=== PATIENT | male | born 1955 | race Caucasian/White ===

== ENCOUNTER 2024-11-11 11:27 | Inpatient (IN) | payer MEDICARE, SELFPAY ==
[2024-11-11] VITALS (26 sets, daily range): BP systolic 152–195; BP diastolic 66–87; PULSE 31–71; RESP 17–32; TEMP 36.6–36.9; O2SAT 86–100; BMI 35.0; BMI 33.3
--- NOTE | 2024-11-11 11:40 | EKG12_ITS ---
Test Reason : Blood Pressure : */* mmHG Vent. Rate : 65 BPM Atrial Rate : 65 BPM P-R Int : 214 ms QRS Dur : 122 ms QT Int : 416 ms P-R-T Axes : 53 -57 1 degrees QTcB Int : 432 ms Sinus rhythm with 1st degree A-V block with Premature atrial complexes Left axis deviation Right bundle branch block Cannot rule out Anteroseptal infarct , age undetermined Abnormal ECG Confirmed by Andrew Sims ([id number]), editor continuity and script PETER FUENTES ([id number]) on 11/12/2024 1:17:36 PM Referred By: UG/TL Confirmed By: Andrew Sims
[2024-11-11 11:49] LABS: Hematocrit 51.8 % (40-54); Hemoglobin 16.4 g/dL (13.0-16.5); Immature Granulocytes Count 0.040 X10^3/uL (0.0-0.0); Mean Corp Hgb Conc 31.7 g/dL (32-36); Mean Corpuscular Volume 86.0 fL (80-94); Mean Platelet Vol. 8.9 fl (6.2-12.0); NRBC Flagged by Analyzer 0 % (0-5); Platelet Count 197 K/mm3 (150-450); RBC Distribution Width CV 16.7 % (11.6-14.6); RBC Distribution Width SD 50.8 fl (35.1-43.9); Red Blood Count 6.02 M/mm3 (4.6-6.2); White Blood Count 10.8 K/mm3 (4.4-11.0)
[2024-11-11] MEDS: Albuterol 2.5 MG/3 ML VIAL.NEB. INHALATION ×3 (11:59→12:29)
[2024-11-11 12:13] LABS: AST(SGOT) 17 U/L (<=37); Alanine Aminotransfer ALT/SGPT 12 U/L (<=46); Albumin, Serum 3.9 g/dL (3.4-4.8); Alkaline Phosphatase 110 U/L (40-129); Anion Gap 10 (5-15); BUN 15 mg/dL (4-19); BUN/Creat Ratio 10.7 RATIO (10-20); Calcium,Total 9.5 mg/dL (7.6-11.0); Carbon Dioxide 33.3 mmol/L (21.0-32.0); Chloride 90 mmol/L (98-108); Estimated Creatinine Clearance 57.55 ml/min (50-250); Globulin 2.7 g/dL (2.2-4.2); Glucose 96 mg/dL (70-99); Potassium 4.5 mmol/L (3.3-5.1); Pro- Brain NATRIURETIC PEPTIDE 3061 pg/mL (<=900)
[2024-11-11 12:14] LABS: Troponin T High Sensitivity 81 ng/L (<=22)
--- NOTE | 2024-11-11 12:20 | RAD_ITS ---
EXAM: XR Chest, 2 Views CLINICAL INDICATION: DYSPNEA, DYSPNEA ON EXERTION, BILATERAL WHEEZING TECHNIQUE: Frontal and lateral views of the chest. COMPARISON: No relevant prior studies available. FINDINGS: LUNGS AND PLEURAL SPACES: See below. HEART: Cardiomegaly with mild congestion. MEDIASTINUM: Unremarkable. Normal mediastinal contour. BONES/JOINTS: Unremarkable. No acute fracture. RAD/Chest PA and Lateral IMPRESSION: Cardiomegaly with mild congestion. Reading Location[facility]
--- NOTE | 2024-11-11 12:26 | EX.ED.DYSGE1 ---
HPI History of Present Illness Chief Complaint: Shortness of Breath Detail of Chief Complaint: Sent from 's office for shortness of breath. States he was breathing 50 Informant: patient Onset/Context/Timing Onset: Days (Dyspnea, dyspnea with activity past several days to week) Context: Sudden Onset Timing: Intermittent Quality: Shortness of breath predominantly with activity and minimal activity Location: Respiratory Current Severity: Mild Maximum Severity: Severe Worsened by: Activity Relieved by: Nothing Associated Symptoms Associated Symptoms: Denies chest pain, pressure, tightness or heaviness. Narrative Narrative: Patient is a 69-year-old male. He has history of hypertension, and lung problems. 5 years ago he smoked 2 packs/day. Recently smoked 1 pack/day. He states he has not had a cigarette since the beginning of the month. When asked if he smoked prior to coming in he admitted yes. He states he had a cigarette because he knew he would be able to smoke for a while. Patient has no history of VTE. He has no risk factors for VTE. He does endorse increased swelling of his legs. He sleeps with more than 1 pillow for comfort. He denies inability to lie flat. He denies PND. He denies chest pain, pressure, tightness or heaviness. He has history of heart attack. He denies abdominal pain, nausea, vomit or diarrhea. He denies black or maroon-colored stool. He does report compliance with his medication. Prior similar symptoms: Yes Recent Illness/Hospitalization: No [facility] Medical History (Updated 11/11/24 @ 14:[address] Grzegorz Jett MD) History of alcohol abuse Smoker Heart attack Additional heart attack (anterolateral wall) Hypertension COPD (chronic obstructive pulmonary disease) Home Medications ?Medication ?Instructions ?Recorded ?Last Taken ?Type albuterol sulfate 90 mcg/actuation 1 puff inhalation Q4H PRN PRN 11/11/24 Unknown History aerosol inhaler (Ventolin HFA) shortness of breath or wheezing budesonide 160 mcg-glycopyr 9 2 inh inhalation DAILY 11/11/24 11/10/24 History mcg-formot 4.8 mcg/actuation HFA inhaler (Breztri Aerosphere) furosemide 20 mg tablet 20 - 40 mg PO BID PRN PRN edema 11/11/24 11/11/24 History lisinopril 20 mg tablet 20 mg PO DAILY 11/11/24 11/11/24 History prednisone 5 mg tablet 5 mg PO DAILY 11/11/24 11/11/24 History pregabalin 50 mg capsule 50 mg PO TID 11/11/24 11/11/24 History Allergy/AdvReac Type Severity Reaction Status Date / Time No Known Allergies Allergy Verified 11/11/24 11:41 Surgical History (Updated 11/11/24 @ 14:18 by Alison Celeste) History of cholecystectomy Social History Smoking Status: Current some day smoker tobacco type: cigarettes ROS ROS ED Constitutional Constitutional ED: Denies chills, fever(s), subjective, sweats or weight loss Eyes Eyes: Denies blurry vision or change in vision ENT ENT ED: Denies ear pain, rhinorrhea or sore throat Cardiovascular Cardiovascular: Denies chest pain, orthopnea, palpitations, paroxysmal nocturnal dyspnea or racing heartbeat Respiratory/Chest Respiratory/Chest: Reports cough, dyspnea and dyspnea on exertion; Denies orthopnea, paroxysmal nocturnal dyspnea or sputum Gastrointestinal Gastrointestinal: Reports abdominal pain, constipation, diarrhea, melena, nausea and vomiting Genitourinary Genitourinary ED: Reports dysuria, hematuria and urinary frequency Musculoskeletal Musculoskeletal: Reports arthralgias, back pain and myalgias Integumentary Reports rash Neurologic Neurologic: Reports headache(s) and paresthesias Endocrine Endocrinology: Reports cold intolerance and heat intolerance Hematologic/Lymphatic Hematologic/Lymphatic: Reports systems reviewed and no addt'l complaints, except as documented EXAM Physical Exam Const Vital Signs: 11/11/24 11:30 11/11/24 11:34 11/11/24 11:37 Temperature 98 F 98.4 F Temperature Source Oral Oral Pulse Rate 31 L 65 Respiratory Rate 22 H 18 Respiratory Effort Short of Breath Respiratory Depth Normal Respiratory Pattern Blood Pressure 195/71 H 183/76 H Blood Pressure Mean 112 111 Pulse Ox 86 94 Oxygen Delivery Method Room Air Nasal Cannula Oxygen Flow Rate (L/min) 4 11/11/24 11:55 11/11/24 12:00 11/11/24 12:15 Temperature Temperature Source Pulse Rate 68 66 Respiratory Rate 24 H 18 Respiratory Effort Respiratory Depth Respiratory Pattern Tachypnea Blood Pressure 158/78 H 173/86 H Blood Pressure Mean 104 107 Pulse Ox 97 Oxygen Delivery Method Nasal Cannula Oxygen Flow Rate (L/min) 4 11/11/24 12:15 11/11/24 12:23 11/11/24 12:32 Temperature 98.1 F Temperature Source Oral Pulse Rate 63 62 60 Respiratory Rate 24 H 21 H 22 H Respiratory Effort Respiratory Depth Respiratory Pattern Tachypnea Blood Pressure 157/70 H Blood Pressure Mean 99 Pulse Ox 96 93 Oxygen Delivery Method Nasal Cannula Nasal Cannula Oxygen Flow Rate (L/min) 4 4 11/11/24 13:00 11/11/24 14:00 Temperature 98.1 F 98.1 F Temperature Source Oral Oral Pulse Rate 58 L 71 Respiratory Rate 20 H 32 H Respiratory Effort Respiratory Depth Respiratory Pattern Blood Pressure 169/79 H 170/74 H Blood Pressure Mean 109 106 Pulse Ox 99 96 Oxygen Delivery Method Nasal Cannula Nasal Cannula Oxygen Flow Rate (L/min) 4 4 Positive well nourished and well developed Constitutional Narrative: BMI is 35.1. Patient's pulse ox on room air is 86%. Patient is noted to be tachypneic. His pulse was 31 in triage. His pulse is now 62. He did not complain of lightheadedness when he was in triage. He is not on a beta-tacho. General Appearance ED: well developed; Negative for cyanotic, diaphoretic or pallor HEENT Reports dry mucous membranes HEENT Narrative: Head is atraumatic normocephalic. Ears normal. Nares patent. Posterior pharynx is normal. Facial exam is limited due to facial hair. Mouth ED: Yes dry mucous membranes Mouth: dry mucous membranes Eyes PERRL and EOMs intact bilaterally General Eye ED: Negative for pale conjunctiva or scleral icterus Neck no lymphadenopathy, supple and no JVD Neck Narrative: Trachea is midline. There is no stridor. Chest Wall inspection of chest normal and palpation of chest normal Resp No normal respiratory effort and No clear to auscultation bilaterally Effort and Inspection: other There is use of accessory muscles. ; Negative for retractions or pain with movement Auscultation: wheezes expiratory wheezes and throughout GI normal to inspection, nondistended, normoactive bowel sounds, non-distended and no masses; Negative for hepatosplenomegaly Back/Spine no CVA tenderness Extremity Negative for normal to inspection Extremity Narrative: There is some discoloration. He has had chronic intermittent swelling of his lower extremities. General Extremety ED: Yes edema General Extremity: edema Neuro oriented x3, CN's II-XII intact bilaterally and no sensory deficits noted Sensorium / Orientation: alert Psych mental status grossly normal Skin no rashes or lesions noted, no wounds and skin turgor normal Skin Narrative: There is no clubbing or cyanosis. Perfusion slightly diminished. General Skin Exam: Negative for jaundice or pallor MDM MDM MDM Narrative Medical decision making narrative: Differential would include anginal equivalent, assessment COPD, pneumonia, doubt pulmonary embolus but needs to be considered if there is no other explanation. History & Record Review Additional record(s) reviewed:: Prior outpatient record (Report from outside facility for COPD February 2024.) Lab Data Attestation: I reviewed the patient's lab results. Lab results narrative: CBC is unremarkable. Basic metabolic panel is remarked for an elevated CO2 of 33.3. BUN/creatinine are 15 and 1.35 with an estimated GFR 57. First troponin is elevated 81. BNP is elevated at 3061. Suspect patient is not ventilating well since his CO2 is elevated. Labs: Laboratory Results - last 24 hr 11/11/24 11/11/24 11/11/24 11:40 11:48 13:31 WBC 10.8 RBC 6.02 Hgb 16.4 Hct 51.8 MCV 86.0 MCH 27.2 MCHC 31.7 L RDW Std Deviation 50.8 H RDW Coeff of Ed 16.7 H Plt Count 197 MPV 8.9 Immature Gran % (Auto) 0.400 Neut % (Auto) 79.8 H Lymph % (Auto) 8.7 L [place] % (Auto) 10.3 H Eos % (Auto) 0.3 Baso % (Auto) 0.5 Absolute Neuts (auto) 8.6 H Absolute Lymphs (auto) 0.94 Nucleated RBC % 0 Sodium 133 Potassium 4.5 Chloride 90 L Carbon Dioxide 33.3 H Anion Gap 10 BUN 15 Creatinine 1.35 H Estim Creat Clear Calc 57.55 Est GFR (MDRD) Non-Af 57 L BUN/Creatinine Ratio 10.7 Glucose 96 Lactic Acid 1.2 Calcium 9.5 Total Bilirubin 0.78 AST 17 ALT 12 Alkaline Phosphatase 110 Troponin T High Sens 81 H* Troponin T Hi Sens 2 Hr 70 H* NT pro BNP II 3061 H Total Protein 6.6 Albumin 3.9 Globulin 2.7 Albumin/Globulin Ratio 1.5 Radiography Chest X-Ray - ED: 2 View and Read by ED Physician (Independently reviewed interpreted by me as negative for any acute process. Borderline Cardiomegaly. No cephalization or effusion or infiltrate. [place]um is unremarkable. There is chronic changes noted on the lateral view of the thoracic spine.) Diagnostic Testing: Clinical Impression(s) from Imaging Studies Chest X-Ray 11/11/24 12:20 IMPRESSION: Cardiomegaly with mild congestion. Reading Location: [facility]S [facility] BEDS AT THE [facility] EKG Initial EKG: Attestation: I personally reviewed and interpreted this EKG as follows: Interpretation: Sinus Rhythm (Normal sinus rhythm rate of 65 with a first-degree AV block there is premature beats noted. [place] interval is 214 ms QRS duration 122 ms. QT duration 416 ms. [place] to the left. There is evidence of a bundle branch block. Suspect right. There is ST-T wave changes due to that.) Management Discussion w/another healthcare provider: Hospitalist (Case was discussed with hospitalist Dr. Kaykay Giron. Full admit PCU. He received first dose of Lasix in the emergency department. Suspect this is a component of COPD and CHF. This to be new onset CHF.) Discharge Plan Triage Chief Complaint: Shortness of Breath ED Provider: Grzegorz Jett Dx/Rx/DC Orders Clinical Impression: Acute hypoxic respiratory failure, New onset of congestive heart failure, Asthma exacerbation in COPD, Acute bronchospasm, Elevated troponin, Elevated blood pressure reading with diagnosis of hypertension, Elevated serum creatinine Prescriptions: No Action albuterol sulfate [Ventolin HFA] 90 mcg/actuation HFA aerosol inhaler 1 puff inhalation Q4H PRN PRN (Reason: shortness of breath or wheezing) Patient Comments: RAN OUT, NEEDS REFILL lisinopril 20 mg tablet 20 mg PO DAILY prednisone 5 mg tablet 5 mg PO DAILY Breztri Aerosphere 160-9-4.8 mcg/actuation HFA aerosol inhaler 2 inh inhalation DAILY pregabalin 50 mg capsule 50 mg PO TID furosemide 20 mg tablet 20 - 40 mg PO BID PRN PRN (Reason: edema) Primary Care Provider: Mariama Sexton NP Referrals: Mariama Sexton SEISMIC SURVEY ASSISTANT, SEISMIC SURVEY ASSISTANT-C [Primary Care Provider] - Print Language: Italian Disposition Disposition: Acute Care Hospital [facility]
[2024-11-11 14:22] LABS: Troponin T High Sens 2 HR 70 ng/L (<=22)
--- NOTE | 2024-11-11 15:06 | PCM.HP.STD ---
HPI - General General Date of Admission: 11/11/24 Date of Service: 11/11/24 Chief Complaint: SOB HPI Narrative MARICRUZ YATES, is a 69-year-old male history of COPD, hypertension, coronary artery disease presented [facility] ED 11/11/2024 for shortness of breath. He was sent from his doctor's office for the increased shortness of breath. Notes that has been worse especially with activity and he is also had some increased swelling in his legs and has been sleeping with more than 1 pillow for comfort. In the ED temp 98 with a heart rate of 65 and blood pressure 183/76, respiratory rate initially 22 with pulse ox 86% on room air and patient was placed on 4 L nasal cannula. CBC with white blood cell count 10.8 and hemoglobin 16.4. BMP with bicarb of 33.3, BUN of 15 and creatinine 1.35. proBNP noted to be elevated at 3061 and initial troponin elevated to 81 w/ repeat of 70. Lactic acid within normal limits. Chest x-ray showed cardiomegaly with mild congestion. []. Hospitalist contacted for mission. Patient evaluated at bedside. He reports history as above with increased shortness of breath over the past week and increased swelling in his legs. Reports he will intermittently get some swelling in his legs however they had been improved until 1 week ago. Denies any productive cough or fever. Reports compliance with home medications and home inhalers. ROS otherwise negative including no chest pain. [facility] Medical History Additional heart attack (anterolateral wall) COPD (chronic obstructive pulmonary disease) Heart attack History of alcohol abuse Hypertension Smoker Home Medications ?Medication ?Instructions ?Recorded ?Last Taken ?Type albuterol sulfate 90 mcg/actuation 1 puff inhalation Q4H PRN PRN 11/11/24 Unknown History aerosol inhaler (Ventolin HFA) shortness of breath or wheezing budesonide 160 mcg-glycopyr 9 2 inh inhalation DAILY 11/11/24 11/10/24 History mcg-formot 4.8 mcg/actuation HFA inhaler (Breztri Aerosphere) furosemide 20 mg tablet 20 - 40 mg PO BID PRN PRN edema 11/11/24 11/11/24 History lisinopril 20 mg tablet 20 mg PO DAILY 11/11/24 11/11/24 History prednisone 5 mg tablet 5 mg PO DAILY 11/11/24 11/11/24 History pregabalin 50 mg capsule 50 mg PO TID 11/11/24 11/11/24 History Allergy/AdvReac Type Severity Reaction Status Date / Time No Known Allergies Allergy Verified 11/11/24 11:41 Surgical History (Updated 11/11/24 @ 14:18 by Alison Celeste) History of cholecystectomy Social History Smoking Status: Current some day smoker tobacco type: cigarettes ROS ROS Narrative General: Denies fever/chills HENT: Denies headache, denies stuffy nose, denies sore throat EYES: Denies changes in vision Resp: Denies cough, increased shortness of breath especially on exertion Cardiac: Denies chest pain GI: Denies abdominal pain, denies changes in bowel, denies nausea/vomiting : Denies changes in urination Extremity: Increased lower extremity swelling MSK: Denies weakness Neuro: Denies any numbness/tingling Heme: Denies any bleeding or bruising Skin: Denies rashes Psychiatric: No complaints voiced Vital Signs Vital Signs Vital Signs: 11/11/24 11:30 11/11/24 11:34 11/11/24 11:37 Temperature 98 F 98.4 F Temperature Source Oral Oral Pulse Rate 31 L 65 Respiratory Rate 22 H 18 Respiratory Effort Short of Breath Respiratory Depth Normal Respiratory Pattern Blood Pressure 195/71 H 183/76 H Blood Pressure Mean 112 111 Pulse Ox 86 94 Oxygen Delivery Method Room Air Nasal Cannula Oxygen Flow Rate (L/min) 4 11/11/24 11:55 11/11/24 12:00 11/11/24 12:15 Temperature Temperature Source Pulse Rate 68 66 Respiratory Rate 24 H 18 Respiratory Effort Respiratory Depth Respiratory Pattern Tachypnea Blood Pressure 158/78 H 173/86 H Blood Pressure Mean 104 107 Pulse Ox 97 Oxygen Delivery Method Nasal Cannula Oxygen Flow Rate (L/min) 4 11/11/24 12:15 11/11/24 12:23 11/11/24 12:30 Temperature Temperature Source Pulse Rate 63 62 63 Respiratory Rate 24 H 21 H 17 Respiratory Effort Respiratory Depth Respiratory Pattern Tachypnea Blood Pressure 157/69 H Blood Pressure Mean 94 Pulse Ox 96 94 Oxygen Delivery Method Nasal Cannula Oxygen Flow Rate (L/min) 4 11/11/24 12:32 11/11/24 12:41 11/11/24 12:45 Temperature 98.1 F Temperature Source Oral Pulse Rate 60 60 62 Respiratory Rate 22 H 24 H 23 H Respiratory Effort Respiratory Depth Respiratory Pattern Blood Pressure 157/70 H 157/70 H 172/75 H Blood Pressure Mean 99 98 105 Pulse Ox 93 91 97 Oxygen Delivery Method Nasal Cannula Oxygen Flow Rate (L/min) 4 11/11/24 13:00 11/11/24 13:00 11/11/24 13:15 Temperature 98.1 F Temperature Source Oral Pulse Rate 58 L 61 63 Respiratory Rate 20 H 23 H 21 H Respiratory Effort Respiratory Depth Respiratory Pattern Blood Pressure 169/79 H 169/79 H 162/82 H Blood Pressure Mean 109 105 104 Pulse Ox 99 97 100 Oxygen Delivery Method Nasal Cannula Oxygen Flow Rate (L/min) 4 11/11/24 13:30 11/11/24 13:45 11/11/24 14:00 Temperature 98.1 F Temperature Source Oral Pulse Rate 63 65 71 Respiratory Rate 22 H 21 H 32 H Respiratory Effort Respiratory Depth Respiratory Pattern Blood Pressure 158/75 H 170/74 H 170/74 H Blood Pressure Mean 97 101 106 Pulse Ox 99 96 96 Oxygen Delivery Method Nasal Cannula Nasal Cannula Oxygen Flow Rate (L/min) 4 4 11/11/24 15:00 11/11/24 15:00 11/11/24 15:03 Temperature 98.1 F Temperature Source Oral Pulse Rate 65 63 Respiratory Rate 23 H 23 H Respiratory Effort Respiratory Depth Respiratory Pattern Blood Pressure 152/87 H 152/87 H Blood Pressure Mean 108 101 Pulse Ox 98 97 99 Oxygen Delivery Method Nasal Cannula Nasal Cannula Oxygen Flow Rate (L/min) 4 2 11/11/24 15:06 Temperature 98.1 F Temperature Source Pulse Rate 63 Respiratory Rate 17 Respiratory Effort Respiratory Depth Respiratory Pattern Blood Pressure 152/87 H Blood Pressure Mean 108 Pulse Ox 98 Oxygen Delivery Method Oxygen Flow Rate (L/min) Weight Weight: 98.52 kg Body Mass Index (BMI) 35.0 Physical Exam Narrative General: Alert, oriented, no apparent distress HEENT: Atraumatic, normocephalic Eyes: Anicteric, normal conjunctiva, extraocular movements grossly intact Neck: Supple Respiratory: Increased respiratory effort, diminished diffusely, faint crackles in the bases Cardiovascular: Regular rate and rhythm GI: Soft, nontender, nondistended Extremities: 1+ lower extremity edema Musculoskeletal: Moving all extremities Neuro: No overt focal neurological deficits Skin: No rashes appreciated Psych: Cooperative Results Lab / Micro Data 11/11/24 11:40 11/11/24 11:40 Labs: Laboratory Results - last 24 hr 11/11/24 11:40: WBC 10.8, RBC 6.02, Hgb 16.4, Hct 51.8, MCV 86.0, MCH 27.2, MCHC 31.7 L, RDW Std Deviation 50.8 H, RDW Coeff of Ed 16.7 H, Plt Count 197, MPV 8.9, Immature Gran % (Auto) 0.400, Neut % (Auto) 79.8 H, Lymph % (Auto) 8.7 L, [place] % (Auto) 10.3 H, Eos % (Auto) 0.3, Baso % (Auto) 0.5, Absolute Neuts (auto) 8.6 H, Absolute Lymphs (auto) 0.94, Nucleated RBC % 0, Sodium 133, Potassium 4.5, Chloride 90 L, Carbon Dioxide 33.3 H, Anion Gap 10, BUN 15, Creatinine 1.35 H, Estim Creat Clear Calc 57.55, Est GFR (MDRD) Non-Af 57 L, BUN/Creatinine Ratio 10.7, Glucose 96, Calcium 9.5, Total Bilirubin 0.78, AST 17, ALT 12, Alkaline Phosphatase 110, Troponin T High Sens 81 H*, NT pro BNP II 3061 H, Total Protein 6.6, Albumin 3.9, Globulin 2.7, Albumin/Globulin Ratio 1.5 11/11/24 11:48: Lactic Acid 1.2 11/11/24 13:31: Troponin T Hi Sens 2 Hr 70 H* Imaging Radiology Impression Chest X-Ray 11/11/24 12:20 IMPRESSION: Cardiomegaly with mild congestion. Reading [facility] Assessment & Plan Assessment/Plan (1) New onset of congestive heart failure: (2) Hypoxia: PLAN: Plan # Hypoxia secondary to fluid overload from presumed new onset heart failure -Admit to telemetry -proBNP 3061 -CXR cardiomegaly with mild congestion -Continue IV lasix - No echo is available in our system, echo ordered -Daily weights, I's and O's -Fluid restriction, heart healthy diet # Elevated troponin -Troponin of 81 with a repeat 70 -Denies any chest pain - Suspect this is due to hypoxia and fluid overload, do not think this is a primary ACS -Will be getting echo as above #Hx COPD -Continue home inhalers -Incentive spirometer - Did not have any wheezing on my exam or infectious symptoms, from he denied any cough or sputum production so did not swab for viruses or give steroids, if any of this changes could consider treating for concomitant COPD exacerbation however on my interview seems primary problem is fluid overload on top of his chronic COPD - Patient chronically on 5 mg of prednisone, will continue at this time #Hx of CAD -Continue home medications #Hypertension - Continue home medications, patient remains hypertensive will need to add additional agents #Tobacco use -Advise cessation - Patient quit 1 month ago but did smoke prior to arrival to the ED today #DVT ppx: Lovenox subcu Josie Giron MD Charges/Coding Visit Charges Inpatient E&M: 71357 Init Hosp L2
[2024-11-11] MEDS: Furosemide 20 MG/2 ML VIAL IV ×2 (15:07→17:02)
--- NOTE | 2024-11-11 15:08 | ED.RN ---
patient requested saline lock in LAC be removed due to discomfort.
--- NOTE | 2024-11-11 15:18 | CASEMGMT ---
Care Management Face to Face with patient for initial transition planning/care coordination assessment in the ED. 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 Patient alert and oriented. Patient willing to participate in assessment and is able to answer all questions appropriately. Care providers, pharmacy, and demographics verified. Admitting Diagnosis: New onset of congestive heart failure, Hypoxia Other diagnosis history: COPD, hypertension, coronary artery disease PCP: Mariama Sexton ACTIVE DIRECTORY ARCHITECT Specialists: none [facility]erred [facility]acy[facility] Insurance: [employer] Medicare Prescription Benefit: yes Living Will/HPOA: none and does not want info LNOK: daughterMarta Living Arrangements: lives alone in a cabin with a loft where patient sleeps. No steps to enter, but 8-9 steps to get up to loft. Independent with all ADLs/IADLs prior to this. Transportation: yes DME: none HHC: none SNF/Rehab: none Community Resources: none Patient goals: Patient wishes to discharge home, denies need for home health care at this time. Patient would like [facility]; does not have home O2 currently. Disposition Plan: admission to acute; RN CM/SW to follow for discharge planning needs that may arise. [place], RECORDS MANAGEMENT ENGINEER, PRE CERTIFICATION SPECIALIST
--- NOTE | 2024-11-11 15:50 | ECHOD_ITS ---
Reason For Study Reason For Study: CONGESTIVE HEART FAILURE Procedure This was a 2D Doppler, Color Flow transthoracic echocardiogram. The study was technically difficult. Exam performed portable in patient room. Left Ventricle Normal LV size. The left ventricular ejection fraction is 65 %. Stage 1 diastolic dysfunction. No regional wall motion abnormalities noted. Right Ventricle Normal RV size. Normal systolic function. Atria Normal left atrium. Normal right atrium. Mitral Valve Normal mitral valve. Tricuspid Valve Normal tricuspid valve. Pulmonic Valve Normal pulmonic valve. Great Vessels Normal aortic root. The pulmonary artery is normal size. Inferior vena cava collapse with respiration. Pericardium/Pleural No pericardial effusion. MMode/2D Measurements & Calculations LVIDd: 4.5 cm IVSd: 1.2 cm LVOT diam: 2.0 cm LVIDs: 1.8 cm LVPWd: 1.1 cm LVOT area: 3.3 cm2 RVDd: 4.9 cm FS: 58.9 % asc Aorta Diam: 3.5 cm LAV(MOD-bp): 40.1 ml LVAd ap4: 22.6 cm2 LAV(MOD-bp) Indexed: 19.4 ml/m2 LVLd ap4: 7.6 cm LAV(MOD-sp2): 42.7 ml EDV(MOD-sp4): 56.6 ml LAV(MOD-sp4): 36.7 ml EDV(sp4-el): 57.3 ml LVAs ap4: 11.7 cm2 LVLs ap4: 6.3 cm ESV(MOD-sp4): 19.3 ml ESV(sp4-el): 18.4 ml EF(MOD-sp4): 65.9 % EF(sp4-el): 67.9 % SV(MOD-sp4): 37.3 ml SV(MOD-sp2): 47.5 ml LVAd ap2: 24.5 cm2 LVLd ap2: 7.6 cm SI(MOD-sp4): 18.0 ml/m2 SI(MOD-sp2): 23.0 ml/m2 EDV(MOD-sp2): 66.9 ml EDV(sp2-el): 67.3 ml LVAs ap2: 11.7 cm2 LVLs ap2: 6.4 cm ESV(MOD-sp2): 19.4 ml ESV(sp2-el): 18.2 ml EF(MOD-sp2): 71.0 % SV(sp4-el): 38.9 ml Ao sinus diam: 3.[address] Junction: 3.2 cm LA A4 area: 16.0 cm2 LA dimension(2D): 4.4 cm RA A4 area: 18.5 cm2 TAPSE: 2.0 cm Time Measurements MV dec time: 0.23 sec Doppler Measurements & Calculations MV E max shiraz: 56.1 cm/sec Lat Peak E' Shiraz: 9.1 cm/sec Med Peak E' Shiraz: 8.5 cm/sec MV A max shiraz: 63.2 cm/sec E/E' lat: 6.2 E/E' med: 6.6 MV E/A: 0.89 Ao V2 max: 174.7 cm/sec LV V1 max: 132.7 cm/sec MV dec slope: 243.3 cm/sec2 Ao max P.2 mmHg LV V1 max P.0 mmHg Ao V2 mean: 113.6 cm/sec LV V1 mean P.9 mmHg Ao mean P.1 mmHg LV V1 mean: 94.4 cm/sec Ao V2 VTI: 35.7 cm LV V1 VTI: 25.9 cm AV (velocity ratio): 0.72 COLEEN(I,D): 2.4 cm2 COLEEN(V,D): 2.5 cm2 SV(LVOT): 85.0 ml PA V2 max: 120.4 cm/sec ECHO/Echo Complete Interpretation Summary Normal LV size. The left ventricular ejection fraction is 65 %. Stage 1 diastolic dysfunction. Structurally normal valves. Ordering Physician: Josie Giron Performed By: Trudi Munoz RDCS
[2024-11-11 16:23] LABS: Troponin T High Sens 4 HR 58 ng/L (<=22)
[2024-11-12] VITALS (8 sets, daily range): BP systolic 128–139; BP diastolic 50–66; PULSE 58–78; RESP 18–68; TEMP 36.5–36.8; O2SAT 4–99; BMI 33.0
[2024-11-12 08:46] LABS: Hematocrit 53.1 % (40-54); Hemoglobin 16.3 g/dL (13.0-16.5); Immature Granulocytes Count 0.030 X10^3/uL (0.0-0.0); Mean Corp Hgb Conc 30.7 g/dL (32-36); Mean Corpuscular Volume 89.2 fL (80-94); Mean Platelet Vol. 9.1 fl (6.2-12.0); NRBC Flagged by Analyzer 0 % (0-5); Platelet Count 201 K/mm3 (150-450); RBC Distribution Width CV 16.9 % (11.6-14.6); RBC Distribution Width SD 53.7 fl (35.1-43.9); Red Blood Count 5.95 M/mm3 (4.6-6.2); White Blood Count 11.4 K/mm3 (4.4-11.0)
[2024-11-12 09:33] LABS: Anion Gap 10 (5-15); BUN 15 mg/dL (4-19); BUN/Creat Ratio 11.4 RATIO (10-20); Calcium,Total 9.5 mg/dL (7.6-11.0); Carbon Dioxide 35.4 mmol/L (21.0-32.0); Chloride 92 mmol/L (98-108); Cholesterol 170 mg/dL (<=200); Estimated Creatinine Clearance 60.42 ml/min (50-250); Glucose 94 mg/dL (70-99); Low Density Lipoprotein Calc. 105 mg/dL; Potassium 4.4 mmol/L (3.3-5.1); Triglycerides 92 mg/dL; Very Low Density Lipoprotein 18 mg/dL (5-40); cholesterol:hdl ratio screen 3.65
--- NOTE | 2024-11-12 13:00 | PN_ITS ---
Subjective Subjective Patient seen and examined. He feels his breathing has improved a bit. He has no other complaints. He denies any chest pain, palpitations, dizziness, nausea or vomiting. Review of systems otherwise negative. Objective Data Objective Data Vital Signs: Vital Signs Temp Pulse Resp BP Pulse Ox O2 Del Method O2 Flow Rate 98.0 F 63 18 139/62 H 99 Nasal Cannula 4 11/12/24 07:42 11/12/24 07:42 11/12/24 07:42 11/12/24 07:42 11/12/24 07:42 11/12/24 07:42 11/12/24 07:42 Oxygen Flow Rate (L/min) 4 Oxygen Delivery Method Nasal Cannula Weight: 210 lb 15.718 oz Body Mass Index (BMI) 33.0 Intake & Output: Intake and Output for Last 24 Hours 11/10/24 11/11/24 11/12/24 23:59 23:59 23:59 Intake Total 100 / 100 Balance 100 / 100 Lab / Micro Data 11/12/24 08:37 11/12/24 08:37 Labs: Laboratory Results - last 24 hr 11/11/24 13:31: Troponin T Hi Sens 2 Hr 70 H* 11/11/24 15:25: Troponin T Hi Sens 4Hr 58 H* 11/12/24 08:37: WBC 11.4 H, RBC 5.95, Hgb 16.3, Hct 53.1, MCV 89.2, MCH 27.4, M CHC 30.7 L, RDW Std Deviation 53.7 H, RDW Coeff of Ed 16.9 H, Plt Count 201, MPV 9.1, Immature Gran % (Auto) 0.300, Neut % (Auto) 81.8 H, Lymph % (Auto) 7.6 L, Rolette % (Auto) 9.6, Eos % (Auto) 0.5, Baso % (Auto) 0.2, Absolute Neuts (auto) 9.3 H, Absolute Lymphs (auto) 0.86, Nucleated RBC % 0, Sodium 137, Potassium 4.4, Chloride 92 L, Carbon Dioxide 35.4 H, Anion Gap 10, BUN 15, Creatinine 1.29 H, Estim Creat Clear Calc 60.42, Est GFR (MDRD) Non-Af 60, BUN/Creatinine Ratio 11.4, Glucose 94, Calcium 9.5, Triglycerides 92, Cholesterol 170, LDL Cholesterol, Calc 105, VLDL Cholesterol 18, HDL Cholesterol 47, Cholesterol/HDL Ratio 3.65, TSH 0.665 Radiography Diagnostic Testing: Radiology Impression Chest X-Ray 11/11/24 12:20 IMPRESSION: Cardiomegaly with mild congestion. Reading Location: [facility] Physical Exam Const alert and oriented x3 Constitutional Narrative: class I obesity General Appearance: cooperative and well developed HEENT normocephalic, head/scalp atraumatic, moist oral mucous membranes and oropharynx normal Eyes PERRL and EOMs intact bilaterally Neck no lymphadenopathy and supple Lymph Lymphatic: no lymphadenopathy noted Resp Resp Narrative: mildly diminished breath sounds bibasally, no wheezes or crackles. On 4L of oxygen by nasal canula. Cardio regular rate, regular rhythm, S1 normal heart sound, S2 normal heart sound and no murmurs GI normal to inspection, nondistended, normoactive bowel sounds, soft to palpation, non-tender and non-distended Extremity normal capillary refill, no clubbing, cyanosis or edema and no calf tenderness General Extremity: no tenderness to palpation of joints or extremities Skin General Skin Exam: no breakdown Neuro CN's II-XII intact bilaterally and no focal motor deficits Motor Exam: strength 5/5 throughout and general weakness Psych thought process normal and cooperative Appearance: appropriate Assessment & Plan Assessment/Plan (1) Hypoxia: (2) New onset of congestive heart failure: PLAN: Plan #Hypoxia due to new onset acute heart failure with unknown EF * Admitted with a complaint of shortness of breath. Currently on 4 L of oxygen by nasal cannula. Usually does not wear oxygen at home. * BNP was elevated at over 3000. Troponins were also elevated but stayed flat. * 2D echo done and read is pending. * Titrate oxygen to maintain saturation above 90%. * Continue diuresing with IV Lasix. Monitor intake and output. Fluid restriction to 1500 cc daily. * #Elevated troponin: Initial troponin was 81 but trended down to around 70 and essentially remained flat. Likely due to hypoxia and demand ischemia. 2D echo as above. #History of COPD: Currently not wheezing. On p.o. prednisone. Titrate oxygen to maintain saturation above 90%. #History of CAD: On lisinopril #Hypertension: On lisinopril and furosemide p.o. P.o. furosemide on hold Lasix currently on IV Lasix #Nicotine dependence: counsled to quit. Nicotine patch 21mg daily DVT prophylaxis: Lovenox Charges/Coding Visit Charges Inpatient E&M: 83575 Subs Hosp L2
[2024-11-13] VITALS (8 sets, daily range): BP systolic 127–142; BP diastolic 58–73; PULSE 68–84; RESP 16–20; TEMP 36.2–36.8; O2SAT 91–96; BMI 32.8
--- NOTE | 2024-11-13 09:03 | CT_ITS ---
PROCEDURE: CTA CHEST W/WO CONTRAST 11/13/2024 REASON FOR EXAM: SHORTNESS OF BREATH TECHNIQUE: One or more dose reduction techniques were used (e.g., Automated exposure control, adjustment of the mA and/or kV according to patient size, use of iterative reconstruction technique). CONTRAST: Isovue 370 VOLUME: 100 mL RADIATION DOSE SUMMARY: DLP: 500 mGycm COMPARISON: Chest radiograph 11/11/2024. FINDINGS: Hardware: None. Lymph nodes: No axillary, mediastinal or hilar lymphadenopathy. Heart: The heart is normal in size without pericardial effusion. The great vessels are normal in caliber. Mild coronary artery and thoracic aortic calcifications. Pulmonary Vessels: No central filling defect within the segmental or subsegmental pulmonary arteries. Lungs and Airways: The central airways are patent. Mild emphysema with scattered areas of scarring. Bibasilar atelectasis. Scattered small areas of ground-glass opacification throughout the bilateral lungs (for example within the left upper lobe series 2, image 99 and right middle lobe series 2, image 126). No pleural effusion or pneumothorax. Upper Abdomen: Calcific plaque of the abdominal aorta. Bones: Mild thoracic spondylosis. Chronic left rib fracture deformities. CT/CTA Chest W/WO Contrast IMPRESSION: 1. No acute pulmonary embolism. No acute thoracic finding. 2. Small scattered ground-glass opacities throughout the bilateral lungs, most compatible with pulmonary neoplasm. These are likely too small for accurate PET-CT characterization. Correlation with prior imaging and follow-up CT chest in 2-3 months recommended to evaluate for stability. 3. Mild emphysema. Reading Location: [id number]
--- NOTE | 2024-11-13 10:11 | ART_ITS ---
Reason For Study Reason For Study: Swelling, Cool extremity Procedure A bilateral lower extremity continuous wave Doppler with analog waveform analysis and ankle brachial indexes. Left Segmental Pressures Left brachial= 119mmHg. Left posterior tibial artery = 117mmHg. Left dorsalis pedis artery = 111mmHg. Left digit = 86 mmHg. The left dorsalis pedis waveforms are triphasic. The left posterior tibial artery waveforms are triphasic. Right Segmental Pressures Right brachial= 117mmHg. Right posterior tibial artery = 114mmHg. Right dorsalis pedis artery = 103mmHg. Right digit = 82 mmHg. The right dorsalis pedis waveforms are triphasic. The right posterior tibial artery waveforms are triphasic. Indices The right ankle brachial index by the dorsalis pedis is 0.87. The right ankle brachial index by the posterior tibial artery is 0.96. The right digital-brachial index is 0.69. The left ankle brachial index by the dorsalis pedis is 0.92. The left ankle brachial index by the posterior tibial artery is 0.98. The left digital-brachial index is 0.72. VL/Ankle Brachial Index Interpretation Summary Right VINCE 0.96, mild arterial insufficiency. Doppler/PVR waveforms of the right ankle normal at rest. Left VINCE 0.98, mild arterial insufficiency. Doppler/PVR waveforms of the left a nkle normal at rest. Ordering Physician: Sue Gonzalez Referring Physician: Mariama Sexton Performed By: Fanny Cerrato RVT
--- NOTE | 2024-11-13 12:59 | PN_ITS ---
Subjective Subjective Patient seen and examined. He had no active complaints. HE remains on 4L of oxygen. He still admits to some shortness of breath. Review of systems is otherwise negative. He has remained hemodynamically stable otherwise. Objective Data Objective Data Vital Signs: Vital Signs Temp Pulse Resp BP Pulse Ox O2 Del Method O2 Flow Rate 98.2 F 68 16 128/58 H 96 Nasal Cannula 4 11/13/24 08:23 11/13/24 08:23 11/13/24 08:23 11/13/24 08:23 11/13/24 08:23 11/13/24 08:45 11/13/24 08:45 Oxygen Flow Rate (L/min) 4 Oxygen Delivery Method Nasal Cannula Weight: 209 lb 7.026 oz Body Mass Index (BMI) 32.8 Intake & Output: Intake and Output for Last 24 Hours 11/11/24 11/12/24 11/13/24 23:59 23:59 23:59 Intake Total 750 / 750 Balance 750 / 750 Lab / Micro Data 11/12/24 08:37 11/12/24 08:37 Radiography Diagnostic Testing: Radiology Impression Echocardiogram 11/11/24 15:50 Interpretation Summary Normal LV size. The left ventricular ejection fraction is 65 %. Stage 1 diastolic dysfunction. Structurally normal valves. Ordering Physician: Josie Giron Performed By: Trudi Munoz RDCS Chest CTA 11/13/24 09:03 IMPRESSION: 1. No acute pulmonary embolism. No acute thoracic finding. 2. Small scattered ground-glass opacities throughout the bilateral lungs, most compatible with pulmonary neoplasm. These are likely too small for accurate PET-CT characterization. Correlation with prior imaging and follow-up CT chest in 2-3 months recommended to evaluate for stability. 3. Mild emphysema. Reading Location: [id number] Physical Exam Const alert and oriented x3 Constitutional Narrative: class I obesity General Appearance: cooperative and well developed HEENT normocephalic, head/scalp atraumatic, moist oral mucous membranes and oropharynx normal Eyes PERRL and EOMs intact bilaterally Neck no lymphadenopathy and supple Lymph Lymphatic: no lymphadenopathy noted Resp Resp Narrative: mildly diminished breath sounds bibasally, no wheezes or crackles. Still n 4L of oxygen by nasal canula. Cardio regular rate, regular rhythm, S1 normal heart sound, S2 normal heart sound and no murmurs GI normal to inspection, nondistended, normoactive bowel sounds, soft to palpation, non-tender and non-distended Extremity normal capillary refill, no clubbing, cyanosis or edema and no calf tenderness General Extremity: no tenderness to palpation of joints or extremities Skin General Skin Exam: no breakdown Neuro CN's II-XII intact bilaterally and no focal motor deficits Motor Exam: strength 5/5 throughout and general weakness Psych thought process normal and cooperative Appearance: appropriate Assessment & Plan Assessment/Plan (1) Hypoxia: (2) New onset of congestive heart failure: PLAN: Plan #Hypoxia due to new onset acute heart failure with unknown EF * Admitted with a complaint of shortness of breath. Currently on 4 L of oxygen by nasal cannula. Usually does not wear oxygen at home. * BNP was elevated at over 3000. Troponins were also elevated but stayed flat. * 2D echo showed EF of 65% with stage I diastolic dysfunction and no regional wall motion abnormalities noted. * Titrate oxygen to maintain saturation above 90%. * Continue diuresing with IV Lasix. Monitor intake and output. Fluid restriction to 1500 cc daily. * In light of his persistent hypoxia CT of the chest was done today which showed no evidence of PE and showed scattered small groundglass opacities throughout the bilateral lungs most compatible with pulmonary neoplasm and were likely too small for accurate PET/CT characterization. * Will consult pulmonology for their input in light of the CT chest findings. * #Elevated troponin: Initial troponin was 81 but trended down to around 70 and essentially remained flat. Likely due to hypoxia and demand ischemia. 2D echo as above. #History of COPD: Currently not wheezing. On p.o. prednisone. Titrate oxygen to maintain saturation above 90%. #History of CAD: On lisinopril #Probable peripheral artery disease: * Patient's left foot is noted to be much cooler to touch. * He does have peripheral neuropathy but denied any acute pain. Diminished distal pulses. * Will get ankle-brachial index of both lower extremities to evaluate for peripheral artery disease. * Will start on aspirin and high intensity statin. #Hypertension: On lisinopril and furosemide p.o. P.o. furosemide on hold Lasix currently on IV Lasix #Nicotine dependence: counsled to quit. Nicotine patch 21mg daily DVT prophylaxis: Lovenox Charges/Coding Visit Charges Inpatient E&M: 95981 Subs Hosp L2
--- NOTE | 2024-11-13 13:15 | NURSING ---
took over care for this patient
[2024-11-13] MEDS: 0.9% Saline Lock 10 ML Syringe IV (18:22)
[2024-11-14] VITALS (11 sets, daily range): BP systolic 126–149; BP diastolic 54–79; PULSE 60–70; RESP 12–20; TEMP 36.2–36.9; O2SAT 84–98; BMI 32.3
[2024-11-14 06:21] LABS: Hematocrit 50.3 % (40-54); Hemoglobin 15.4 g/dL (13.0-16.5); Immature Granulocytes Count 0.020 X10^3/uL (0.0-0.0); Mean Corp Hgb Conc 30.6 g/dL (32-36); Mean Corpuscular Volume 90.1 fL (80-94); Mean Platelet Vol. 9.1 fl (6.2-12.0); NRBC Flagged by Analyzer 0 % (0-5); Platelet Count 211 K/mm3 (150-450); RBC Distribution Width CV 16.3 % (11.6-14.6); RBC Distribution Width SD 54.1 fl (35.1-43.9); Red Blood Count 5.58 M/mm3 (4.6-6.2); White Blood Count 9.3 K/mm3 (4.4-11.0)
--- NOTE | 2024-11-14 06:41 | EX.PCM.CONCC ---
Assessment & Plan Assessment/Plan (1) Hypoxia: PLAN: Plan RECOMMENDATIONS: 1. Supplemental oxygen to maintain saturations at or above 90%. 2. Continue scheduled bronchodilators. 3. Resume triple therapy inhaler regimen at discharge. 4. Perform walking oximetry study prior to consideration for discharge home. I do anticipate the patient will have a home-going supplemental O2 requirement. POC assessment can be completed in the pulmonary medicine office at follow-up. 5. The patient will require outpatient follow-up in the pulmonary medicine clinic as scheduled. Recommend baseline PFTs be obtained. 6. Recommend follow-up CT imaging in 3 to 6 months. 7. The patient has been scheduled for follow-up in the pulmonary medicine clinic on November 27 8:15 AM. Will sign off at this time. Please call with any additional questions. IMPRESSIONS: 1. Hypoxemia secondary to heart failure with preserved ejection fraction exacerbation Continue ongoing diuresis as tolerated along with scheduled bronchodilators, given the patient's underlying history of COPD. Perform walking oximetry study prior to consideration for discharge home. Ultimately, I would recommend that the patient follow-up with the pulmonary medicine clinic so that baseline PFTs can be obtained. Continue triple therapy inhaler regimen at discharge. 2. Abnormal CT chest CT imaging of the chest completed on November 12 demonstrated several groundglass nodules bilaterally, the largest of which was approximately 7 mm in size. Based upon Fleischner Society recommendations, the patient should have a repeat CT chest completed in 3 to 6 months. This can be coordinated on an outpatient basis once the patient follows up in the pulmonary medicine clinic. 3. Chronic tobacco dependency/self-reported history of COPD The patient has an approximate [id number] smoking history and continues to smoke cigarettes daily. As noted above, the patient will require surveillance CT imaging of the chest for lung cancer screening purposes. 4. History of obesity/coronary artery disease/hypertension Complicates care, management, recovery and prognosis. Continue home medications as indicated. This note was generated with [employer] software. It may contain incorrect words, spelling, and punctuation that were not noted in checking the note before signing. HPI Consult Data Date of Consult: 11/14/24 HPI Narrative Reason for Consultation: Abnormal CT chest HPI Narrative: The patient is a 69-year-old male, with a history as outlined below, who presented to the emergency department on November 11 with progressive dyspnea. 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 He does not utilize supplemental oxygen at his baseline. The patient indicated that he has an approximate [id number] smoking history, but is cut back to smoking 3 cigarettes/day. He is currently on a triple therapy inhaler regimen with Breztri and as needed albuterol. In addition to his presenting dyspnea, the patient noted worsening lower extremity edema. On presentation to the emergency department, the patient was documented to be afebrile and hypertensive. He was initially saturating 86% on room air. Laboratory evaluation revealed a normal white blood cell count. Hemoglobin and platelet count were stable. Chemistry profile was notable for a bicarbonate of 33 with a creatinine of 1.35. Lactate was within normal limits. Troponin was elevated at 81 with a BNP of 3061. The patient was ultimately admitted to the progressive care unit and placed on Lasix. On November 13, a CTA chest was obtained which demonstrated no evidence for pulmonary embolism. There was mild bilateral edematous changes along with small groundglass nodules, the largest of which was approximately 7 mm in size. The patient remains on scheduled bronchodilators and IV Lasix. [facility] Medical History (Updated 11/11/24 @ 15:[address] Josie Giron MD) History of alcohol abuse Smoker Heart attack Additional heart attack (anterolateral wall) Hypertension COPD (chronic obstructive pulmonary disease) Home Medications ?Medication ?Instructions ?Recorded ?Last Taken ?Type albuterol sulfate 90 mcg/actuation 1 puff inhalation Q4H PRN PRN 11/11/24 Unknown History aerosol inhaler (Ventolin HFA) shortness of breath or wheezing budesonide 160 mcg-glycopyr 9 2 inh inhalation DAILY 11/11/24 11/10/24 History mcg-formot 4.8 mcg/actuation HFA inhaler (Breztri Aerosphere) furosemide 20 mg tablet 20 - 40 mg PO BID PRN PRN edema 11/11/24 11/11/24 History lisinopril 20 mg tablet 20 mg PO DAILY 11/11/24 11/11/24 History prednisone 5 mg tablet 5 mg PO DAILY 11/11/24 11/11/24 History pregabalin 50 mg capsule 50 mg PO TID 11/11/24 11/11/24 History Allergy/AdvReac Type Severity Reaction Status Date / Time No Known Allergies Allergy Verified 11/11/24 11:41 Surgical History (Updated 11/11/24 @ 14:18 by Alison Celeste) History of cholecystectomy Social History Smoking Status: Current some day smoker tobacco type: cigarettes ROS ROS Narrative 10 systems were reviewed with pertinent positives as noted in the HPI above. Physical Exam Const alert, oriented x3 and no apparent distress Constitutional Narrative: Obese. Resting comfortably in bed. General Appearance: cooperative HEENT normocephalic, head/scalp atraumatic and moist oral mucous membranes Eyes PERRL, EOMs intact bilaterally and conjunctivae normal Neck supple General: trachea midline Chest inspection of chest normal Resp normal respiratory effort and no use of accessory muscles Effort and Inspection: able to speak in complete sentences Auscultation: wheezes and diminished lung sounds Cardio regular rate and regular rhythm GI normal to inspection, nondistended, normoactive bowel sounds Extremity no clubbing, cyanosis or edema Skin no rashes or lesions noted Neuro CN's II-XII intact bilaterally, moves all extremities and no focal motor deficits Psych cooperative and affect normal Lab / Micro Data 11/14/24 05:07 11/14/24 05:07 Labs: Laboratory Results - last 24 hr 11/14/24 05:07: WBC 9.3, RBC 5.58, Hgb 15.4, Hct 50.3, MCV 90.1, MCH 27.6, MCHC 30.6 L, RDW Std Deviation 54.1 H, RDW Coeff of Ed 16.3 H, Plt Count 211, MPV 9.1, Immature Gran % (Auto) 0.200, Neut % (Auto) 76.4 H, Lymph % (Auto) 10.4 L, [place]undy % (Auto) 11.6 H, Eos % (Auto) 1.2, Baso % (Auto) 0.2, Absolute Neuts (auto) 7.1, Absolute Lymphs (auto) 0.96, Nucleated RBC % 0 Imaging Radiology Impression Chest CTA 11/13/24 09:03 IMPRESSION: 1. No acute pulmonary embolism. No acute thoracic finding. 2. Small scattered ground-glass opacities throughout the bilateral lungs, most compatible with pulmonary neoplasm. These are likely too small for accurate PET-CT characterization. Correlation with prior imaging and follow-up CT chest in 2-3 months recommended to evaluate for stability. 3. Mild emphysema. Reading Location: [id number] Ankle Brachial Index 11/13/24 10:11 Interpretation Summary Right VINCE 0.96, mild arterial insufficiency. Doppler/PVR waveforms of the right ankle normal at rest. Left VINCE 0.98, mild arterial insufficiency. Doppler/PVR waveforms of the left ankle normal at rest. Ordering Physician: Sue Gonzalez Referring Physician: Mariama Sexton Performed By: Fanny Cerrato RVT Charges/Coding Visit Charges Inpatient E&M: 46112 Init Hosp L3
[2024-11-14 06:55] LABS: Anion Gap 10 (5-15); BUN 23 mg/dL (4-19); BUN/Creat Ratio 15.6 RATIO (10-20); Calcium,Total 8.8 mg/dL (7.6-11.0); Carbon Dioxide 35.7 mmol/L (21.0-32.0); Chloride 94 mmol/L (98-108); Estimated Creatinine Clearance 52.86 ml/min (50-250); Glucose 92 mg/dL (70-99); Potassium 4.3 mmol/L (3.3-5.1)
--- NOTE | 2024-11-14 11:32 | PN_ITS ---
Subjective Subjective Patient seen and examined. He has no active complaints. He still on 4 L of oxygen. He is no wheezing denies any chest pain or palpitations, dizziness, nausea vomiting or any other symptoms. Review of systems otherwise negative. Objective Data Objective Data Vital Signs: Vital Signs Temp Pulse Resp BP Pulse Ox O2 Del Method O2 Flow Rate 98.0 F 61 16 143/62 H 93 Nasal Cannula 4 11/14/24 08:58 11/14/24 08:58 11/14/24 08:58 11/14/24 08:58 11/14/24 08:58 11/14/24 09:00 11/14/24 09:00 Oxygen Flow Rate (L/min) 4 Oxygen Delivery Method Nasal Cannula Weight: 206 lb 12.697 oz Body Mass Index (BMI) 32.3 Intake & Output: Intake and Output for Last 24 Hours 11/12/24 11/13/24 11/14/24 23:59 23:59 23:59 Intake Total 750 / 750 100 / 150 50 / 50 Balance 750 / 750 100 / 150 50 / 50 Lab / Micro Data 11/14/24 05:07 11/14/24 05:07 Labs: Laboratory Results - last 24 hr 11/14/24 05:07: WBC 9.3, RBC 5.58, Hgb 15.4, Hct 50.3, MCV 90.1, MCH 27.6, MCHC 30.6 L, RDW Std Deviation 54.1 H, RDW Coeff of Ed 16.3 H, Plt Count 211, MPV 9.1, Immature Gran % (Auto) 0.200, Neut % (Auto) 76.4 H, Lymph % (Auto) 10.4 L, [place] % (Auto) 11.6 H, Eos % (Auto) 1.2, Baso % (Auto) 0.2, Absolute Neuts (auto) 7.1, Absolute Lymphs (auto) 0.96, Nucleated RBC % 0, Sodium 139, Potassium 4.3, Chloride 94 L, Carbon Dioxide 35.7 H, Anion Gap 10, BUN 23 H, Creatinine 1.46 H, Estim Creat Clear Calc 52.86, Est GFR (MDRD) Non-Af 52 L, BUN/Creatinine Ratio 15.6, Glucose 92, Calcium 8.8 Radiography Diagnostic Testing: Radiology Impression Ankle Brachial Index 07/23/25 10:11 Interpretation Summary Right VINCE 0.96, mild arterial insufficiency. Doppler/PVR waveforms of the right ankle normal at rest. Left VINCE 0.98, mild arterial insufficiency. Doppler/PVR waveforms of the left ankle normal at rest. Ordering Physician: Sue Gonzalez Referring Physician: Mariama Sexton Performed By: Fanny Cerrato RVT Physical Exam Const alert and oriented x3 Constitutional Narrative: class I obesity General Appearance: cooperative and well developed HEENT normocephalic, head/scalp atraumatic, moist oral mucous membranes and oropharynx normal Eyes PERRL and EOMs intact bilaterally Neck no lymphadenopathy and supple Lymph Lymphatic: no lymphadenopathy noted Resp Resp Narrative: mildly diminished breath sounds bibasally, no wheezes or crackles. Still on 4L of oxygen by nasal canula. Cardio regular rate, regular rhythm, S1 normal heart sound, S2 normal heart sound and no murmurs GI normal to inspection, nondistended, normoactive bowel sounds, soft to palpation, non-tender and non-distended Extremity normal capillary refill, no clubbing, cyanosis or edema and no calf tenderness General Extremity: no tenderness to palpation of joints or extremities Skin General Skin Exam: no breakdown Neuro CN's II-XII intact bilaterally and no focal motor deficits Motor Exam: strength 5/5 throughout and general weakness Psych thought process normal and cooperative Appearance: appropriate Assessment & Plan Assessment/Plan (1) Hypoxia: (2) New onset of congestive heart failure: PLAN: Plan #Hypoxia due to new onset acute heart failure with unknown EF * Admitted with a complaint of shortness of breath. Still on 4 L of oxygen by nasal cannula. Usually does not wear oxygen at home. * BNP was elevated at over 3000. Troponins were also elevated but stayed flat. * 2D echo showed EF of 65% with stage I diastolic dysfunction and no regional wall motion abnormalities noted. * Titrate oxygen to maintain saturation above 90%. * Continue diuresing with IV Lasix. Monitor intake and output. Fluid restriction to 1500 cc daily. * In light of his persistent hypoxia CT of the chest was done today which showed no evidence of PE and showed scattered small groundglass opacities throughout the bilateral lungs most compatible with pulmonary neoplasm and were likely too small for accurate PET/CT characterization. * Pulmonology consulted and recommends follow-up chest CT in 3 to 6 months for follow-up. * #Elevated troponin: Initial troponin was 81 but trended down to around 70 and essentially remained flat. Likely due to hypoxia and demand ischemia. 2D echo as above. #History of COPD: Currently not wheezing. On p.o. prednisone. Titrate oxygen to maintain saturation above 90%. #History of CAD: On lisinopril #Probable peripheral artery disease: * Patient's left foot is noted to be much cooler to touch yesterday. It feels much better today though * VINCE done was 0.96 in RLE and 0.98 in LLE , ndicating mild arterial insufficiency in both LEs. * He does have peripheral neuropathy but denied any acute pain. Diminished distal pulses. * Will get ankle-brachial index of both lower extremities to evaluate for peripheral artery disease. * will hold off on startin aspirin and high intensity statin in light of these findings. * #Hypertension: On lisinopril and furosemide p.o. P.o. furosemide on hold Lasix currently on IV Lasix. Will switch to PO lasix today #Nicotine dependence: counsled to quit. Nicotine patch 21mg daily DVT prophylaxis: Lovenox Disposition: aptient says he would like to stay one more day. WIll dc tomorrow, likely on home oxygen. Will need walking pulse ox prior to discharge. Charges/Coding Visit Charges Inpatient E&M: 18947 Subs Hosp L2
--- NOTE | 2024-11-14 14:55 | CASEMGMT ---
RN JOSÉ updated that patient will need oxygen at discharge. Patient prefer to have POC at discharge. SHANNON KUMAR called [facility] and they can setup POC for at discharge. SHANNON KUMAR in to patient's room and prefers [facility] for DME. Patient denies further needs or concerns. RN JOSÉ sent referral to [facility] via [facility]. RN JOSÉ updated discharge plan.
[2024-11-15 04:47] VITALS: BMI 33.1
[2024-11-15 05:32] VITALS: BP 153/60; PULSE 68; RESP 18; TEMP 37; O2SAT 93
[2024-11-15 05:38] VITALS: O2SAT 93
[2024-11-15 06:58] LABS: Hematocrit 50.3 % (40-54); Hemoglobin 15.1 g/dL (13.0-16.5); Immature Granulocytes Count 0.030 X10^3/uL (0.0-0.0); Mean Corp Hgb Conc 30.0 g/dL (32-36); Mean Corpuscular Volume 91.5 fL (80-94); Mean Platelet Vol. 9.2 fl (6.2-12.0); NRBC Flagged by Analyzer 0 % (0-5); Platelet Count 204 K/mm3 (150-450); RBC Distribution Width CV 16.0 % (11.6-14.6); RBC Distribution Width SD 54.7 fl (35.1-43.9); Red Blood Count 5.50 M/mm3 (4.6-6.2); White Blood Count 8.8 K/mm3 (4.4-11.0)
[2024-11-15 07:06] VITALS: PULSE 68; RESP 18; O2SAT 91
[2024-11-15 08:00] VITALS: BP 133/55; PULSE 62; RESP 20; TEMP 36.7; O2SAT 93; O2SAT 94
[2024-11-15 08:03] VITALS: O2SAT 93; O2SAT 94
[2024-11-15 08:34] LABS: Anion Gap 8 (5-15); BUN 25 mg/dL (4-19); BUN/Creat Ratio 16.6 RATIO (10-20); Calcium,Total 9.1 mg/dL (7.6-11.0); Carbon Dioxide 37.9 mmol/L (21.0-32.0); Chloride 95 mmol/L (98-108); Estimated Creatinine Clearance 51.36 ml/min (50-250); Glucose 95 mg/dL (70-99); Potassium 4.5 mmol/L (3.3-5.1)
--- NOTE | 2024-11-15 10:00 | PCM.DC ---
Discharge Instructions DC O2, CPAP, BIPAP needs Home O2 Discharge instructions: Yes Type of respiratory needs?: Oxygen Oxygen frequency: Continuous Continuous oxygen liters per minute: 4 Dressing / Incision Weight Bearing Status: Weight bearing as tolerated Dressing / Incision Call your doctor if you observe: Fever of 101 or Higher, Shortness of breath, Dizziness, Swelling in the ankles and Chest pain Follow Up Care Test Results: Test results from this visit will be discussed in further detail at your follow-up appointment, if applicable. Discharge Plan Admission Admit Date/Time: 11/11/24 15:06 Primary Reason for Your Visit: hypoxia Attending Provider: Sue Gonzalez Primary Care Provider: Mariama Sexton NP Consulting Providers: Josie Giron Instructions Patient Instructions: ED Dyspnea Discharge Orders/Prescriptions Prescriptions: New furosemide 40 mg Tablet 40 mg PO DAILY Qty: 30 2RF Continued albuterol sulfate [Ventolin HFA] 90 mcg/actuation HFA aerosol inhaler 1 puff inhalation Q4H PRN PRN (Reason: shortness of breath or wheezing) Patient Comments: RAN OUT, NEEDS REFILL lisinopril 20 mg tablet 20 mg PO DAILY prednisone 5 mg tablet 5 mg PO DAILY Breztri Aerosphere 160-9-4.8 mcg/actuation HFA aerosol inhaler 2 inh inhalation DAILY pregabalin 50 mg capsule 50 mg PO TID Discontinued furosemide 20 mg tablet 20 - 40 mg PO BID PRN PRN (Reason: edema) Referrals / Follow Up: Babak Mohr DO [Med Staff - Active Staff] - Within 2 Weeks (Hospital follow up appointment, Dr Mohr saw them in Hospital and they can follow up with [employer] in office, [place] please schedule) Mariama Sexton NP, [employer] [Primary Care Provider] - Within 1 Week Disposition Disposition (needs filled in before D/C Order can be placed): Home, Self Care
--- NOTE | 2024-11-15 10:07 | PHA.DC.MR.R ---
Pharmacy PA Med Reconciliation Pharmacy Service has performed discharge medication reconciliation for this patient. The patient's discharge medication list was reviewed for discrepancies and discrepancies were resolved. Medications at Discharge Home Medications albuterol sulfate 90 mcg/actuation aerosol inhaler (Ventolin HFA) 1 puff inhalation Q4H PRN PRN shortness of breath or wheezing 11/11/24 budesonide 160 mcg-glycopyr 9 mcg-formot 4.8 mcg/actuation HFA inhaler (Breztri Aerosphere) 2 inh inhalation DAILY 11/11/24 lisinopril 20 mg tablet 20 mg PO DAILY 11/11/24 prednisone 5 mg tablet 5 mg PO DAILY 11/11/24 pregabalin 50 mg capsule 50 mg PO TID 11/11/24 furosemide 40 mg tablet 40 mg PO DAILY #30 tabs 11/15/24
[2024-11-15 10:20] VITALS: BP 126/66; PULSE 61; O2SAT 95
--- NOTE | 2024-11-15 10:28 | CASEMGMT ---
SHANNON KUMAR in to patient's room to confirm if home oxygen was delivered from [facility]. Patient states that [facility] wanted to deliver equipment to patient's house and will have a copay of $23. He declined to have equipment delivered and wanted to think about it. SHANNON KUMAR explained the need for concentrator and portable oxygen and that patient is currently requiring oxygen continuously. Patient agreeable to oxygen setup. Patient denies further needs or concerns at this time. SHANNON KUMAR updated [facility] that patient is discharging today and is agreeable to have equipment delivered to patient's room. SHANNON KUMAR updated DC plan.
--- NOTE | 2024-11-15 12:28 | DS.PCM_ITS ---
Providers Date of Admission: 11/11/24 Date of Discharge: 11/15/24 Primary Care Physician: DEBI Rosario Consultations 11/13/24 13:07 Consult: Theater Manager / Pulmonary Medicine Routine Consulting Provider: Intensivists/Pulmonary Med Reason for Consult: CTA chest suspicious for pulmonary neoplasm EMERGENT Consult: No MD Notified: Yes Date Notified: 11/13/24 Time Notified: 13:07 Method of Notification: Text Reason For Visit: FLUID OVERLOAD, HYPOXIA Diagnosis Discharge Diagnosis (1) Hypoxia: Status: Acute Code(s): R09.02 - Hypoxemia (2) New onset of congestive heart failure: Status: Acute Code(s): I50.9 - Heart failure, unspecified Plan #Hypoxia due to new onset acute heart failure with unknown EF * Admitted with a complaint of shortness of breath. Still on 4 L of oxygen by nasal cannula. Usually does not wear oxygen at home. * BNP was elevated at over 3000. Troponins were also elevated but stayed flat. * 2D echo showed EF of 65% with stage I diastolic dysfunction and no regional wall motion abnormalities noted. * Titrate oxygen to maintain saturation above 90%. * Continue diuresing with IV Lasix. Monitor intake and output. Fluid restriction to 1500 cc daily. * In light of his persistent hypoxia CT of the chest was done today which showed no evidence of PE and showed scattered small groundglass opacities throughout the bilateral lungs most compatible with pulmonary neoplasm and were likely too small for accurate PET/CT characterization. * Pulmonology consulted and recommends follow-up chest CT in 3 to 6 months for follow-up. * #Elevated troponin: Initial troponin was 81 but trended down to around 70 and essentially remained flat. Likely due to hypoxia and demand ischemia. 2D echo as above. #History of COPD: Currently not wheezing. On p.o. prednisone. Titrate oxygen to maintain saturation above 90%. #History of CAD: On lisinopril #Probable peripheral artery disease: * Patient's left foot is noted to be much cooler to touch yesterday. It feels much better today though * VINCE done was 0.96 in RLE and 0.98 in LLE , ndicating mild arterial insufficiency in both LEs. * He does have peripheral neuropathy but denied any acute pain. Diminished distal pulses. * Will get ankle-brachial index of both lower extremities to evaluate for peripheral artery disease. * will hold off on startin aspirin and high intensity statin in light of these findings. * #Hypertension: On lisinopril and furosemide p.o. P.o. furosemide on hold Lasix currently on IV Lasix. Will switch to PO lasix today #Nicotine dependence: counsled to quit. Nicotine patch 21mg daily DVT prophylaxis: Lovenox Disposition: aptient says he would like to stay one more day. WIll dc tomorrow, likely on home oxygen. Will need walking pulse ox prior to discharge. Medications at Discharge Home Medications albuterol sulfate 90 mcg/actuation aerosol inhaler (Ventolin HFA) 1 puff inhalation Q4H PRN PRN shortness of breath or wheezing 11/11/24 budesonide 160 mcg-glycopyr 9 mcg-formot 4.8 mcg/actuation HFA inhaler (Breztri Aerosphere) 2 inh inhalation DAILY 11/11/24 lisinopril 20 mg tablet 20 mg PO DAILY 11/11/24 prednisone 5 mg tablet 5 mg PO DAILY 11/11/24 pregabalin 50 mg capsule 50 mg PO TID 11/11/24 furosemide 40 mg tablet 40 mg PO DAILY #30 tabs 11/15/24 Hospital Course Operations None Procedures 2-D Echocardiogram Summary of Care Provided Minutes Spent on Discharge: 45 Hospital Course: Patient is a 69 y/o male with a PMH as outlined who was admitted via the ED on 11/11/2024 with a complaint of shortness of breath. he was brought in from his doctor's office for increased shortness of breath which worsened with exertion and he had increased swelling in his lower extremities. He had been sleeping on one pillow for comfort. He was saturating at 86% on 4L of oxygen. Cr was 1.35 and pro BNP was elevate at 3061. Initial troponin was elevated to 81 and repeat troponin was 70. Chest xray showed cardiomegaly with mild congestion. He was admitted to be managed for acute exacerbation of new onset heart failure. He was started on diuresis with IV lasix 40mg bid. 2D echo showed EF of 65% with stage 1 diastolic dysfunction and no regional wall motion abnormalities. His shortness of breath improved though he still required 4L of oxygen. CTA chest showed no PE and showed small scattered ground glass opacities throughout the bilateral lungs, most compatible with pulmonary neoplasm and likely too small for accurate PET-CT characterization as well as mild emphysema. he complained of some pain in his feet and his right foot was noted to be cold, so VINCE was done which showed only mild arterial insufficiency. He was evaluated by pulmonology who recommended that he could be discharged home and follow up on outpatient basis with them. He was discharged on PO lasix 40mg daily. Due to his Cr of ~ 1.5, he was not given potassium supplementation. He was discharged on 4L of oxygen by nasal canula. Patient seen and examined prior to discharge. He had no active complaints and had an uneventful night. Review of systems is otherwise negative. Labs and vitals reviewed. Home meds reviewed and reconciled. Physical Exam Const alert, oriented x3 and no apparent distress Constitutional Narrative: class I obesity General Appearance: cooperative, comfortable and well developed HEENT normocephalic, head/scalp atraumatic, hearing grossly normal bilaterally, moist oral mucous membranes and oropharynx normal Mouth: oral and palatal mucosa normal Eyes PERRL and EOMs intact bilaterally Neck no lymphadenopathy and supple Lymph Lymphatic: no lymphadenopathy noted Resp Resp Narrative: mildly diminished breath sounds bibasally, no wheezes or crackles. Still on 4L of oxygen by nasal canula. Cardio regular rate, regular rhythm, S1 normal heart sound, S2 normal heart sound and no murmurs GI normal to inspection, nondistended, normoactive bowel sounds, soft to palpation, non-tender and non-distended Extremity normal capillary refill, no clubbing, cyanosis or edema and no calf tenderness General Extremity: no tenderness to palpation of joints or extremities Skin General Skin Exam: no breakdown Neuro oriented x3, CN's II-XII intact bilaterally, moves all extremities and no focal motor deficits Motor Exam: strength 5/5 throughout and general weakness Psych thought process normal and cooperative Appearance: appropriate Weight / BMI Weight Weight: 211 lb 10.3 oz Body Mass Index (BMI) 33.1 ABG / Lab / Microbiology Data 11/15/24 06:35 11/15/24 06:35 Laboratory: Laboratory Results - last 24 hr 11/15/24 06:35: WBC 8.8, RBC 5.50, Hgb 15.1, Hct 50.3, MCV 91.5, MCH 27.5, MCHC 30.0 L, RDW Std Deviation 54.7 H, RDW Coeff of Ed 16.0 H, Plt Count 204, MPV 9.2, Immature Gran % (Auto) 0.300, Neut % (Auto) 73.6 H, Lymph % (Auto) 12.1 L, [place] % (Auto) 12.3 H, Eos % (Auto) 1.5, Baso % (Auto) 0.2, Absolute Neuts (auto) 6.5, Absolute Lymphs (auto) 1.07, Nucleated RBC % 0, Sodium 140, Potassium 4.5, Chloride 95 L, Carbon Dioxide 37.9 H, Anion Gap 8, BUN 25 H, Creatinine 1.52 H, Estim Creat Clear Calc 51.36, Est GFR (MDRD) Non-Af 50 L, BUN/Creatinine Ratio 16.6, Glucose 95, Calcium 9.1 D/C Instructions Discharge Activity: Return to Normal Activity Weight Bearing Status: Weight bearing as tolerated Call your doctor if you observe: Fever of 101 or Higher, Shortness of breath, Dizziness, Swelling in the ankles and Chest pain DC O2, CPAP, BIPAP Needs Home O2 Discharge instructions: Yes Type of respiratory needs?: Oxygen Oxygen frequency: Continuous Continuous oxygen liters per minute: 4 DC home with Oxygen: Yes Home O2 MD Review: I have reviewed the oxygen testing, and the patient qualifies for home oxygen equipment and portability. The patient is mobile in the home and the community. Meaningful Use Info Meaningful Use Meaningful Use Diagnoses (Choose all that apply): CHF CHF HOLLI/ARB ordered at discharge?: Yes Documented LVEF (%): 65 Discharge Plan Admission Admit Date/Time: 11/11/24 15:06 Primary Reason for Your Visit: hypoxia Attending Provider: Sue Gonzalez Primary Care Provider: Mariama Sexton [employer] Consulting Providers: Josie Giron Instructions Patient Instructions: ED Dyspnea Discharge Orders/Prescriptions Prescriptions: New furosemide 40 mg Tablet 40 mg PO DAILY Qty: 30 2RF Continued albuterol sulfate [Ventolin HFA] 90 mcg/actuation HFA aerosol inhaler 1 puff inhalation Q4H PRN PRN (Reason: shortness of breath or wheezing) Patient Comments: RAN OUT, NEEDS REFILL lisinopril 20 mg tablet 20 mg PO DAILY prednisone 5 mg tablet 5 mg PO DAILY Breztri Aerosphere 160-9-4.8 mcg/actuation HFA aerosol inhaler 2 inh inhalation DAILY pregabalin 50 mg capsule 50 mg PO TID Discontinued furosemide 20 mg tablet 20 - 40 mg PO BID PRN PRN (Reason: edema) Referrals / Follow Up: Babak Mohr DO [Med Staff - Active Staff] - Within 2 Weeks (Hospital follow up appointment, Dr Mohr saw them in Hospital and they can follow up with [employer] in office, [place] please schedule) Mariama Sexton [employer], [employer] [Primary Care Provider] - Within 1 Week Disposition Disposition (needs filled in before D/C Order can be placed): Home, Self Care Charges/Coding Visit Charges Inpatient E&M: 28988 Disch Hosp >30min
== END 2024-11-15 15:03 | disposition home or self-care (01) | DRG 280 ==
LOC: ED 14:58 → PCU 15:21
PROVIDERS: Admitting Provider Internal Medicine; Emergency Provider Emergency Medicine; PCP Nurse Practitioner Family; Visit Provider Student in an Organized Health Care Education/Training Program
DX: I11.0 Hypertensive heart disease with heart failure (principal); I21.A1 Myocardial infarction type 2; I50.31 Acute diastolic (congestive) heart failure; I73.9 Peripheral vascular disease, unspecified; J44.9 Chronic obstructive pulmonary disease, unspecified; F17.210 Nicotine dependence, cigarettes, uncomplicated; R79.89 Other specified abnormal findings of blood chemistry; Z79.52 Long term (current) use of systemic steroids; R09.02 Hypoxemia; Z79.51 Long term (current) use of inhaled steroids; Z79.899 Other long term (current) drug therapy; R93.89 Abnormal findings on diagnostic imaging of other specified body structures
CPT/HCPCS: 36415; 71046; 71275; 80048; 80053; 80061; 83605; 83880; 84443; 84484; 85025; 93005; 93306; 93922; 94640; 99285; 99406; Q9967; A4216; J1938

== ENCOUNTER → 2024-12-05 | Outpatient (CLI) | payer MEDICARE, SELFPAY | END | disposition home or self-care (01) | LOC: PSN 10:28 | PROVIDERS: PCP Nurse Practitioner Family; Referring Provider Nurse Practitioner Acute Care; Visit Provider Nurse Practitioner Acute Care | DX: J44.9 Chronic obstructive pulmonary disease, unspecified (principal) | CPT/HCPCS: 94060; 94726; 94729 ==

== ENCOUNTER → 2024-12-09 | Outpatient (CLI) | payer MEDICARE, SELFPAY ==
[2024-12-09 13:51] VITALS: PULSE 71; PULSE 82; PULSE 83; PULSE 85; PULSE 91; O2SAT 84; O2SAT 85; O2SAT 87; O2SAT 89; O2SAT 91; O2SAT 92; O2SAT 95
--- NOTE | 2024-12-12 13:00 | WT_ITS ---
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 Assistive device None used: Pre-test Oxygen Delivery Room Air Method Pulse Ox (%) 91 Pulse Rate (60-100 71 beats/min) Dyspnea Umer Scale ( 0 0-10) Exertion Umer Scale 6 (6-20) 1st minute Oxygen Delivery Room Air Method Pulse Ox (%) 84 Pulse Rate (60-100 85 beats/min) 2nd minute Oxygen Flow Rate (L/ 2 min) (L/min) Oxygen Delivery Nasal Cannula Method Pulse Ox (%) 89 Pulse Rate (60-100 82 beats/min) 3rd minute Oxygen Flow Rate (L/ 2 min) (L/min) Oxygen Delivery Nasal Cannula Method Pulse Ox (%) 87 Pulse Rate (60-100 91 beats/min) 4th minute Oxygen Flow Rate (L/ 3 min) (L/min) Oxygen Delivery Nasal Cannula Method Pulse Ox (%) 92 Pulse Rate (60-100 82 beats/min) 5th minute Oxygen Flow Rate (L/ 3 min) (L/min) Oxygen Delivery Nasal Cannula Method Pulse Ox (%) 85 Pulse Rate (60-100 85 beats/min) 6th minute Oxygen Flow Rate (L/ 4 min) (L/min) Oxygen Delivery Nasal Cannula Method Pulse Ox (%) 91 Pulse Rate (60-100 83 beats/min) Dyspnea Umer Scale ( 3 0-10) Exertion Umer Scale 12 (6-20) Post-test Oxygen Flow Rate (L/ 4 min) (L/min) Oxygen Delivery Nasal Cannula Method Pulse Ox (%) 95 Pulse Rate (60-100 71 beats/min) Full Laps Walked 15 Partial Lap, Number 47 of Tiles Walked Total Distance 932 Walked (ft) Interpretation Interpretation: The patient ambulated 932 feet over the course of 6 minutes beginning on room air without assistive devices. Pretesting oxygen saturation was noted to be 91% on room air. With ambulation, the patient desaturated on several occasions, requiring 4 L/min to maintain appropriate exertional oxygen saturations. Recommendations Recommendations: 4 L/min of supplemental oxygen is required with exertion.
== END | disposition home or self-care (01) ==
LOC: PSN 12:08
PROVIDERS: PCP Nurse Practitioner Family; Referring Provider Nurse Practitioner Acute Care; Visit Provider Nurse Practitioner Acute Care
DX: J44.9 Chronic obstructive pulmonary disease, unspecified (principal)
CPT/HCPCS: 94618

== ENCOUNTER → 2025-02-12 | Outpatient (CLI) | payer MEDICARE, SELFPAY ==
--- NOTE | 2025-02-12 13:16 | CT_ITS ---
PROCEDURE: CHEST WITHOUT CONTRAST 02/12/2025 REASON FOR EXAM: SCATTERED PULMONARY NODULES TECHNIQUE: Chest CT without contrast. Coronal and Sagittal reconstruction series were provided. One or more dose reduction techniques were used (e.g., Automated exposure control, adjustment of the mA and/or kV according to patient size, use of iterative reconstruction technique RADIATION DOSE SUMMARY: CTDlvol: 20.95 mGy DLP: 723.54 mGycm COMPARISON: CTA chest, 11/13/2024 FINDINGS: Lower neck:The thyroid gland is normal. There is no supraclavicular lymphadenopathy. Mediastinum:No abnormal masses or lymphadenopathy. Heart and Vasculature:The heart size is normal. There is no pericardial effusion. There is moderate calcific vascular disease of the coronary arteries and thoracic aorta. Esophagus:Normal. Upper Abdomen:There is calcific vascular disease of the visualized abdominal aorta. The origins of both renal arteries are heavily calcified. Chest wall:The visualized soft tissues of the chest wall appear unremarkable. There is no axillary lymphadenopathy. 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 There are Schmorl's nodes at multiple vertebral endplates throughout the thoracic spine with associated decrease in the vertebral body and intervertebral disc height. There is mild dextroscoliosis of the thoracic spine. Lungs, airways and pleura: Airspace consolidation seen in both lungs on the prior exam has largely resolved. There is an area of pleural-based consolidation in the anterior medial basal segment of the lower lobe of the left lung, most likely scarring. There is pleural-parenchymal scar in the middle lobe of the right lung in the inferior segment of the lingula. There are stable ground-glass opacities in the left lung apex (image 16), and in the middle lobe of the right lung (image 53). CT/Chest without Contrast IMPRESSION: 1. Interval decrease in airspace consolidation in the lower lobe of both lungs consistent with resolution of infectious/inflammatory disease. 2. There is residual pleural-based consolidation in the lower lobe of the left lung, as well as pleural-parenchymal scarring in the middle lobe of the right lung and upper lobe of the left lung. 3. There are 2 areas of ground-glass opacity seen, 1 in each lung, unchanged. 4. Calcific vascular disease. 5. Other findings as noted. Reading Location: [place] [id number]
== END | disposition home or self-care (01) ==
LOC: CT 13:15
PROVIDERS: PCP Nurse Practitioner Family; Referring Provider Nurse Practitioner Acute Care; Visit Provider Nurse Practitioner Acute Care
DX: R91.8 Other nonspecific abnormal finding of lung field (principal)
CPT/HCPCS: 71250